=== PATIENT | male | born 2000 | race Caucasian/White ===

== ENCOUNTER 2018-04-13 08:28 | Emergency (ER) | payer SELFPAY ==
[2018-04-13] MEDS ORDERED: SULFAMETHOXAZOLE/TRIMETHOPRIM 800-160 MG TABLET PO ONE (11:16)
--- NOTE | 2018-04-13 11:22 | ER Document Report ---
ED Skin Rash/Insect Bite/Abscs - General Chief Complaint: Abscess Stated Complaint: POSSIBLE ABSCESS Time Seen by Provider: 04/13/18 09:56 Mode of Arrival: Ambulatory Information source: Patient Notes: Patient is an otherwise healthy 20-year-old male who presents with chief complaint of possible abscess to his upper buttock. Patient denies history of same, denies history of MRSA or diabetes. TRAVEL OUTSIDE OF THE [place] IN LAST 30 DAYS: No - Related Data Allergies/Adverse Reactions: bee venom protein (honey bee) Allergy (Verified 04/14/18 14:31) Past Medical History - General Information source: Patient - Social History Smoking Status: Current Some Day Smoker Frequency of alcohol use: None Drug Abuse: None Family History: Reviewed & Not Pertinent Patient has suicidal ideation: No Patient has homicidal ideation: No - Medical History Medical History: Negative Renal/ Medical History: Denies: Hx Peritoneal Dialysis Surgical Hx: Negative Review of Systems - Review of Systems Skin: See HPI Physical Exam - Vital signs Vitals: Temp Pulse Resp BP Pulse Ox 97.9 F 59 L 18 119/65 100 04/13/18 08:33 04/13/18 08:33 04/13/18 08:33 04/13/18 08:33 04/13/18 08:33 - Notes Notes: PHYSICAL EXAMINATION: GENERAL: Well-appearing, well-nourished and in no acute distress. HEAD: Atraumatic, normocephalic. EYES: Pupils equal round and reactive to light, extraocular movements intact, sclera anicteric, conjunctiva are normal. ENT: Nares patent, oropharynx clear without exudates. Moist mucous membranes. NECK: Normal range of motion, supple without lymphadenopathy LUNGS: Breath sounds clear to auscultation bilaterally and equal. No wheezes rales or rhonchi. HEART: Regular rate and rhythm without murmurs ABDOMEN: Soft, nontender, nondistended abdomen. No guarding, no rebound. No masses appreciated. Musculoskeletal: Normal range of motion, no pitting or edema. No cyanosis. Erythematous area noted to upper left buttock with area of endurance and fluctuance. NEUROLOGICAL: Cranial nerves grossly intact. Normal speech, normal gait. Normal sensory, motor exams PSYCH: Normal mood, normal affect. SKIN: Warm, Dry, normal turgor, no rashes or lesions noted. Course - Re-evaluation Re-evalutation: Abscess to upper left buttock drained, see procedure note. Packing placed. Patient instructed to return to emergency department for packing removal. - Vital Signs Vital signs: Temp Pulse Resp BP Pulse Ox 98.1 F 72 16 112/64 97 04/13/18 11:48 04/13/18 11:48 04/13/18 11:48 04/13/18 11:48 04/13/18 11:48 Procedures - Incision and Drainage Left buttock Type: Simple Anesthetic type: 1% Lidocaine Blade size: 11 I&D procedure: Betadine prep applied, Shurclens applied, Iodoform packing placed Incision Method: Incision made by scalpel Discharge - Discharge Clinical Impression: Abscess Condition: Stable Disposition: HOME, SELF-CARE Additional Instructions: ABSCESS: You have an abscess (boil). This a pus-forming infection, usually due to staph. Some boils may be left to drain on their own, but most require lancing. From the time the tender lump first appears, it may be three or four days before the abscess is ready to [place]. Local heat and rest help at this stage of treatment. An antibiotic may prevent spread of the infection. Once the abscess is opened, packing may be placed into it. This is done so pus is not sealed inside by premature closure of the cavity. The packing will be removed at your follow-up visit or you may be advised to remove it yourself at home. Sometimes this packing must be replaced a few times during healing. The wound will heal with surprisingly little scar. Depending on the size and location of an abscess, healing can take one to four weeks. You may shower and wash the area around the incision site two or three times a day. Antibiotics may be prescribed, but are usually not necessary after an abscess has been drained. If you develop fever, chills, worsening pain, or increasing swelling in the area, call the doctor or return immediately. POST INCISION AND DRAINAGE: You have had an incision made to allow drainage of an abscess. The incision must remain open so that pus and debris can drain from the wound. If the abscess cavity is large, packing is placed. This keeps the tissues from collapsing and trapping pus inside, while the body shrinks the cavity. The packing may need to be replaced every day or two. The physician will instruct you on the packing. Keep a bulky dressing over the area. Replace it if it becomes saturated with blood or pus. Do not disturb the packing (if present). You may shower and cleanse the area with gentle soap and warm water two or three times a day. Local warmth may be soothing, and may promote faster healing. Return if you develop high fever or chills, or if you note spreading redness, increasing swelling, or increasing tenderness. TRIMETHOPRIM-SULFA: You have been given a prescription for trimethoprim-sulfa (TMS, Septra, Bactrim). This is a combination antibiotic of the sulfa class, often used for urinary tract infections, middle ear infections, bronchitis, shigella intestinal infection, and Pneumocystis pneumonia. TMS is usually well-tolerated. Occasional side effects include nausea and decreased appetite. Septra is not recommended for infants less than two months of age. Do not take this medication if you have experienced severe side effects or allergy to sulfa medicine. You should stop this medicine at once and contact your physician if you develop any rash, joint pain, shortness of breath, bruising, or jaundice ( yellow color in the skin), or if you develop any other new or unusual symptoms. FOLLOW-UP CARE: Most simple abscesses will not require a follow up visit. If you had packing placed in the abscess, remove it as instructed by the physician. If you have been referred to a physician for follow-up care, call the physicians office for an appointment as you were instructed or within the next two days. If you experience worsening or a significant change in your symptoms, return to the Emergency Department at any time for re-evaluation. Return for packing removal in the next 24-36 hours. Take antibiotics as prescribed. It is important that you have this rechecked Prescriptions: Sulfamethoxazole/Trimethoprim [Bactrim Ds Tablet] 1 tab PO BID #14 tablet
[2018-04-13 11:49] VITALS: BP 112/64
== END 2018-04-13 11:53 | disposition home or self-care (01) ==
LOC: ER 08:28
PROC: 0H98XZZ Drainage of Buttock Skin, External Approach (ICD-10-PCS; principal; 2018-04-13)
DX: L02.31 Cutaneous abscess of buttock (principal); F17.200 Nicotine dependence, unspecified, uncomplicated
CPT/HCPCS: 99283; 10060; A6266

== ENCOUNTER 2018-04-14 14:27 | Emergency (ER) | payer SELFPAY ==
[2018-04-14 14:34] VITALS: BP 109/61
--- NOTE | 2018-04-14 14:55 | ER Document Report ---
HPI - HPI Patient complains to provider of: Wound recheck Onset: Last week Onset/Duration: Better Quality of pain: Achy Pain Level: 1 Context: Patient states he had an abscess that started 5 days ago and had incision and drainage procedure yesterday. Patient was advised to return today for a wound recheck. Patient denies any fever. Patient has been compliant with taking the Bactrim. Associated Symptoms: denies: Fever Exacerbated by: Denies Relieved by: Denies Similar symptoms previously: No Recently seen / treated by doctor: No - ROS ROS below otherwise negative: Yes Systems Reviewed and Negative: Yes All other systems reviewed and negative - CONSTITUTIONAL Constitutional: DENIES: Fever - MUSCULOSKELETAL Musculoskeletal: DENIES: Extremity pain - DERM Notes: Abscess to sacral area Past Medical History - General Information source: Patient - Social History Smoking Status: Current Every Day Smoker Smoking Education Provided: Yes Frequency of alcohol use: None Drug Abuse: None Occupation: Dining Room Hostess Lives with: Family Family History: Reviewed & Not Pertinent Patient has suicidal ideation: No Patient has homicidal ideation: No - Medical History Medical History: Negative Renal/ Medical History: Denies: Hx Peritoneal Dialysis Surgical Hx: Negative Vertical Provider Document - CONSTITUTIONAL Agree With Documented VS: Yes Exam Limitations: No Limitations General Appearance: WD/WN, No Apparent Distress - INFECTION CONTROL TRAVEL OUTSIDE OF THE [place] IN LAST 30 DAYS: No - HEENT HEENT: Atraumatic, Normocephalic - NECK Neck: Normal Inspection - RESPIRATORY Respiratory: No Respiratory Distress - GI/ABDOMEN Gastrointestinal: Abdomen Soft - BACK Back: Normal Inspection - MUSCULOSKELETAL/EXTREMETIES Musculoskeletal/Extremeties: MAEW, FROM - NEURO Level of Consciousness: Awake, Alert, Appropriate Motor/Sensory: No Motor Deficit - DERM Integumentary: Warm, Dry, Abscess - Resolving abscess status post incision and seizure to superior gluteal cleft, no surrounding erythema. Abscess measures 1 cm in diameter Course - Vital Signs Vital signs: Temp Pulse Resp BP Pulse Ox 99.0 F 81 16 109/61 96 04/14/18 14:32 04/14/18 14:32 04/14/18 14:32 04/14/18 14:32 04/14/18 14:32 Discharge - Discharge Clinical Impression: Encounter for wound re-check Condition: Stable Disposition: HOME, SELF-CARE Instructions: Abscess ([facility]), Bactroban Ointment ([facility]) Additional Instructions: Return immediately for any new or worsening symptoms Followup with your primary care provider, call tomorrow to make a followup appointment Prescriptions: Mupirocin [Bactroban 2% Ointment 22 gm] 1 applic TP TID #22 gm Forms: Smoking Cessation Education Referrals: [facility] [Provider Group] - Follow up as needed
== END 2018-04-14 14:58 | disposition home or self-care (01) ==
LOC: ER 14:27
DX: Z48.817 Encounter for surgical aftercare following surgery on the skin and subcutaneous tissue (principal); L02.31 Cutaneous abscess of buttock; F17.200 Nicotine dependence, unspecified, uncomplicated
CPT/HCPCS: 99282